=== PATIENT | male | born 1935 | race Caucasian/White ===

== ENCOUNTER → 2017-02-09 | Day surgery (SDC) | payer OTHER ==
[2017-01-20 10:59] VITALS: BMI 42.0
--- NOTE | 2017-01-20 11:59 | PAT Medication Instructions ---
Service Date January 20, 2017. Current Home Medication List Acetaminophen (Tylenol), 1,000 MG PO BID Albuterol Inhaler (Ventolin Inhaler), 2 PUFFS INH Q4-6HRS PRN for PRN Allopurinol (Zyloprim), 100 MG PO BID Amiodarone Hcl (Cordarone), 200 MG PO QAM Amlodipine (Norvasc), 5 MG PO QAM Apple Cider Vinegar (Apple Cider Vinegar), 1,000 MG PO QPM Aspirin (Aspirin Ec), 81 MG PO QAM Cholecalciferol (Vitamin D3), 3,000 UNIT PO QAM Cinnamon (Cinnamon), 1,000 MG PO HS Cyanocobalamin (Vitamin B-12), 3,000 MCG SL WK Esomeprazole Magnesium (Nexium), 40 MG PO QAM Fluticasone Propionate (Nasal) (Flonase Allergy Relief), 2 SPRAYS BAKARI QAM Furosemide (Lasix), 20 MG PO QAM Gabapentin (Neurontin), 100 MG PO QAM Gabapentin (Neurontin), 200 MG PO HS Glimepiride (Glimepiride), 1 MG PO BID Iron-Vitamin C (Iron 100/C), 2 TAB PO QAM Isosorbide Mononitrate Ext Rel (Imdur Ext Rel), 60 MG PO QAM Krill Oil (Krill Oil), 1,000 MG PO QAM Magnesium Oxide (Mag-Ox), 800 MG PO QAM Magnesium Oxide (Mag-Ox), 400 MG PO QPM Metaxalone (Skelaxin), 800 MG PO BID Metoprolol Succinate (Toprol Xl), 50 MG PO BID Multivitamin (Multivitamin), 1 TAB PO QAM Mupirocin (Bactroban 2% Oint), 1 APPLN EXT DAILY Nitroglycerin (Nitrostat), 0.4 MG UT PRN Probiotic Product (Probiotic Acidophilus), 1 CAP PO QAM Saline (Saline Nasal Mobile Infant), 1-2 SPRY BAKARI BID Sitagliptin (Januvia), 25 MG PO QAM Tramadol (Ultram), 50 MG PO Q6H PRN for RN Triamcinolone Acet (Nasacort-Aq Nasal Inh), 2 SPRAYS BAKARI QAM Valsartan (Diovan), 160 MG PO QAM Vitamin E (Alph-E), 400 UNITS PO QAM Warfarin Sodium (Warfarin Sodium), 5 MG PO 6XWK [Fiber Cap], 1 TAB PO BID Medication Instructions For Your Scheduled Surgery - Check with surgeon/coumadin clinic/surgeon for instructions: Warfarin Sodium (Warfarin Sodium), 5 MG PO 6XWK Aspirin (Aspirin Ec), 81 MG PO QAM - Hold the following medications 2 weeks prior to surgery: Vitamin E (Alph-E), 400 UNITS PO QAM Krill Oil (Krill Oil), 1,000 MG PO QAM Cinnamon (Cinnamon), 1,000 MG PO HS Apple Cider Vinegar (Apple Cider Vinegar), 1,000 MG PO QPM - Hold the following medications 24 hours prior to surgery: Mupirocin (Bactroban 2% Oint), 1 APPLN EXT DAILY - Hold the following medications the morning of surgery: [Fiber Cap], 1 TAB PO BID Valsartan (Diovan), 160 MG PO QAM Sitagliptin (Januvia), 25 MG PO QAM Probiotic Product (Probiotic Acidophilus), 1 CAP PO QAM Multivitamin (Multivitamin), 1 TAB PO QAM Metaxalone (Skelaxin), 800 MG PO BID Magnesium Oxide (Mag-Ox), 800 MG PO QAM Iron-Vitamin C (Iron 100/C), 2 TAB PO QAM Glimepiride (Glimepiride), 1 MG PO BID Furosemide (Lasix), 20 MG PO QAM Cyanocobalamin (Vitamin B-12), 3,000 MCG SL WK Cholecalciferol (Vitamin D3), 3,000 UNIT PO QAM - Take the following medications the morning of surgery with a sip of water: Triamcinolone Acet (Nasacort-Aq Nasal Inh), 2 SPRAYS BAKARI QAM Saline (Saline Nasal Mobile Infant), 1-2 SPRY BAKARI BID Nitroglycerin (Nitrostat), 0.4 MG UT PRN Metoprolol Succinate (Toprol Xl), 50 MG PO BID Isosorbide Mononitrate Ext Rel (Imdur Ext Rel), 60 MG PO QAM Gabapentin (Neurontin), 100 MG PO QAM Fluticasone Propionate (Nasal) (Flonase Allergy Relief), 2 SPRAYS BAKARI QAM Esomeprazole Magnesium (Nexium), 40 MG PO QAM Amlodipine (Norvasc), 5 MG PO QAM Amiodarone Hcl (Cordarone), 200 MG PO QAM Allopurinol (Zyloprim), 100 MG PO BID Acetaminophen (Tylenol), 1,000 MG PO BID Albuterol Inhaler (Ventolin Inhaler), 2 PUFFS INH Q4-6HRS PRN for PRN Tramadol (Ultram), 50 MG PO Q6H PRN for RN (okay to take up to 4 hours prior to surgery if needed) - Take the following medications as scheduled the night before surgery: [Fiber Cap], 1 TAB PO BID Saline (Saline Nasal Mobile ), 1-2 SPRY BAKARI BID Nitroglycerin (Nitrostat), 0.4 MG UT PRN Metoprolol Succinate (Toprol Xl), 50 MG PO BID Metaxalone (Skelaxin), 800 MG PO BID Magnesium Oxide (Mag-Ox), 400 MG PO QPM Glimepiride (Glimepiride), 1 MG PO BID Gabapentin (Neurontin), 200 MG PO HS Allopurinol (Zyloprim), 100 MG PO BID Acetaminophen (Tylenol), 1,000 MG PO BID Albuterol Inhaler (Ventolin Inhaler), 2 PUFFS INH Q4-6HRS PRN for PRN Tramadol (Ultram), 50 MG PO Q6H PRN for RN If you have any questions please call us at [phone] or [phone] or [phone]
--- NOTE | 2017-01-20 12:20 | DIAGNOSTIC IMAGING REPORT ---
CHEST PREADMISSION(PA/LAT) CLINICAL HISTORY: Preoperative chest COMPARISON STUDY: 06/24/2014 FINDINGS: The heart is at the upper limits of normal in size. A valvular prosthesis is visualized. There is mild basilar interstitial thickening. There is no failure. There is no lobar consolidation. There are no pleural effusions..[ IMPRESSION: Stable chronic interstitial thickening. No acute findings. Electronically signed by: Cristi Benz M.D. 01/20/2017 12:18 PM Dictated Date/Time: 01/20/2017 12:17 PM
[2017-01-20 12:49] LABS: BASO % 0.1 %; BASO ABS # 0.01 K/uL (0-0.2); COMPLETE YES; EOS % 0.2 %; LYMPH % 18.1 %; LYMPH ABS # 1.76 K/uL (1.2-3.4); MEAN CELL VOLUME 91.1 fL (80-100); MEAN CORPUSCULAR HEMOGLOBIN 30.1 pg (25-34); MEAN CORPUSCULAR HGB CONC 33.1 g/dl (32-36); MEAN PLATELET VOLUME 11.3 fL (7.4-10.4); MONO % 10.8 %; NEUT % 68.8 %; PLATELET COUNT 106 K/uL (130-400); RED BLOOD COUNT 3.95 M/uL (4.7-6.1)
[2017-01-20 13:04] LABS: INR 2.1 (0.9-1.1); PARTIAL THROMBOPLASTIN RATIO 1.5; PROTHROMBIN TIME (PATIENT) 22.9 SECONDS (9.0-12.0)
[2017-01-20 13:09] LABS: URINE APPEARANCE CLEAR (CLEAR); URINE BILIRUBIN NEG (NEG); URINE COLOR YELLOW; URINE NITRITE NEG (NEG); URINE PH 7.5 (4.5-7.5); UROBILINOGEN NEG (NEG); ZZUR CULT IF INDIC CLEAN CATCH NO
[2017-01-20 13:18] LABS: MANUAL MICROSCOPIC REQUIRED? NO; REVIEW REQ? NO; SULFASALICYLIC ACID POS (NEG)
[2017-01-20 13:24] LABS: BUN/CREATININE RATIO 14.9 (10-20); CALCIUM 8.9 mg/dl (8.5-10.1); CREATININE 2.4 mg/dl (0.60-1.40); POTASSIUM 4.4 mmol/L (3.5-5.1)
--- NOTE | 2017-02-08 19:35 | HISTORY & PHYSICAL EXAMINATION ---
DATE OF ADMISSION: 02/09/2017 CHIEF COMPLAINT: Chronic right shoulder pain. HISTORY OF PRESENT ILLNESS: This is a 81-year-old male patient of Dr. Reid'bertram complaining of chronic right shoulder pain, longstanding, now progressively getting worse. The patient had an MRI to diagnose severe AC arthritis and edema with biceps tendinopathy. He has failed conservative treatment and wishes to proceed with a right shoulder subacromial decompression, distal clavicle excision, and a possible biceps tenotomy. PAST MEDICAL HISTORY: Coronary artery disease status post an NH with a history of angina, hypertension, hypercholesterolemia, irregular heartbeat, asthma, pulmonary embolism, COPD, sleep apnea with the use of CPAP, carpal tunnel syndrome, diabetes mellitus, anemia, history of blood clots, osteoarthritis, spine problems, neck problems, sciatica, acid reflux, hiatal hernia, obesity, and kidney failure. SOCIAL HISTORY: The patient was a lifelong smoker, quit in 1986. He is an occasional drinker. PAST SURGICAL HISTORY: Will be provided on admission. FAMILY HISTORY: Noncontributory. REVIEW OF SYSTEMS: The patient complains of chronic right shoulder pain. Otherwise, denies any shortness of breath, chest pain, nausea, vomiting or any other joint complaints. DISCHARGE MEDICATIONS: Include: 1. Tylenol 1000 mg b.i.d. 2. Albuterol inhaler 2 puffs q. 4-6 hours p.r.n. 3. Allopurinol 100 mg b.i.d. 4. Amiodarone 200 mg q.a.m. 5. Amlodipine 5 mg q.a.m. 6. Apple cider vinegar 1000 mg q.p.m. 7. Aspirin 81 mg q.a.m. 8. Cholecalciferol 30,000 units q.a.m. 9. Cinnamon 1000 mg at bedtime. 10. Vitamin B12 3000 mcg daily. 11. Nexium 40 mg daily. 12. Flonase 2 sprays in each nostril q.a.m. 13. Lasix 20 mg daily. 14. Neurontin 100 mg daily q.a.m. and then Neurontin again 200 mg at bedtime. 15. Glimepiride 1 mg b.i.d. 16. Iron with vitamin C 2 tablets q.a.m. 17. Imdur extended release 60 mg q.a.m. 18. Krill oil 1000 mg q.a.m. 19. Magnesium oxide 800 mg q.a.m., magnesium oxide 400 mg q.p.m. 20. Skelaxin 800 mg b.i.d. 21. Toprol 50 mg b.i.d. 22. A multivitamin daily. 23. Bactroban 2% ointment apply externally to affected area daily. 24. Nitrostat 0.4 mg as needed. 25. Probiotic daily. 26. Saline b.i.d. 27. Januvia 25 mg q.a.m. 28. Ultram 50 mg as needed. 29. Nasacort 2 sprays in each nostril in the morning. 30. Diovan 160 mg q.a.m. 31. Vitamin E 400 units q.a.m. 32. Warfarin or Coumadin 5 mg 6 days per week, 1 tablet. 33. Fiber 1 tablet b.i.d. ALLERGIES: INCLUDE DANDER AND POLLEN. PHYSICAL EXAMINATION: GENERAL: Well-developed, well-nourished 81-year-old male in no acute distress. He is alert and oriented x3 and pleasant. HEENT: Normocephalic, atraumatic. Extraocular motions are intact. Pupils are equal and reactive to light. HEART: Regular rate and rhythm, no murmurs appreciated. LUNGS: Clear. ABDOMEN: Soft, nontender, bowel sounds present. EXTREMITIES: Right shoulder reveals positive AC joint tenderness, positive impingement maneuvering, positive pain with strength testing. He has positive Speed's test and Ector testing. NEUROLOGIC: Neurovascularly he is intact in his right upper extremity. DIAGNOSES: Right shoulder acromioclavicular arthritis, biceps tendinopathy and impingement. He also has a history of coronary artery disease status post an myocardial infarction, hypertension, hypercholesterolemia, irregular heartbeat, history of angina, asthma, pulmonary embolism, chronic obstructive pulmonary disease, sleep apnea with the use of CPAP, carpal tunnel syndrome, diabetes mellitus, anemia, again deep vein thrombosis, osteoarthritis, spine problems, neck problems, sciatica, acid reflux, hiatal hernia, obesity, kidney failure. PLAN: The patient was advised of his diagnosis. Indications, risks, benefits, and postop course have all been reviewed. The patient wishes to proceed with a right shoulder subacromial decompression, arthroscopic distal clavicle excision, and possible biceps tenotomy. Necessary consent forms, preoperative testing and clearances will be obtained. [place]
[~2017-02-09] VITALS: Ht 180.3 cm; Wt 125.5 kg
[~2017-02-09] MED LIST: ACET-1256 PO; ALBUAER19 INH; ALLO100T57 PO; AMIO200T4 PO; AMLO-110 PO; APPLTAB PO; ASPI81TA28 PO; BCTROWC EXT; BUPIVACAINE 0.25% 30 ML VIAL INFIL SCH; BUPIVACAINE 0.5 % 5 MG/1 ML PF 10ML VIAL ONE; BUPIVACAINE/EPINEPHRINE 0.25% 1:200,000 30 ML VIAL ONE; CEFAZOLIN 3000 MG/65 ML D5W IV SCH; CHOL1TAB12 PO; CINN1CAP2 PO; CLONIDINE HCL 100 MCG/ML SYRINGE ONE; CYAN1SUB12 SL; DVN/160 PO; FENTANYL CITRATE INJ 50 MCG/1 ML 2 ML VIAL ONE; FIBER CAP PO; FLUT0.15 NAE; FURO-85 PO; GABA-112 PO; GLIM1TAB2 PO; IRON5TAB PO; ISOS60TA25 PO; KRIL1000 PO; MAGN400T6 PO; MEPIVACAINE HCL 1.5% 30 ML VIAL ONE; META1TAB22 PO; METHYLPREDNISOLONE ACETATE 80 MG/ML VIAL IA ONE; METO-452 PO; MIDAZOLAM HCL 1 MG/ML 2ML VIAL ONE; MULT-506 PO; NTRGSL/4 UT; NXM/40 PO; PROB1CAP6 PO; SALI1SPR15 NAE; SITA25TA PO; SODIUM CHLORIDE 0.9% 1000ML 1,000 ML IV SCH; TRAM-10 PO; TRIA3AER NAE; VITA400C28 PO; WARF-246 PO
[2017-02-09 05:53] VITALS: BP 144/92; PULSE 60; TEMP 37; O2SAT 93; Ht 180.3 cm; Wt 125.5 kg
[2017-02-09 06:00] LABS: PARTIAL THROMBOPLASTIN RATIO 1.2; PROTHROMBIN TIME (PATIENT) 10.7 SECONDS (9.0-12.0)
[2017-02-09 06:13] LABS: BUN/CREATININE RATIO 12.4 (10-20); CALCIUM 8.7 mg/dl (8.5-10.1); POTASSIUM 4.5 mmol/L (3.5-5.1)
--- NOTE | 2017-02-09 07:15 | Anesthesiology Progress Note ---
Anesthesia Progress Note Date of Service February 09, 2017. Progress Notes This is a 81 y/o w male presenting for right shoulder surgery.PMHx is extensive and sig. for:CHF,s/p TAVR for ,CAD,s/p stent,COPD,Asthma,anemia,morbid obesdity,carotid artery disease,,s/p NE,sleep apnea,NIDDM,Diabetic PN and CRI/ CKD.Pt is >75 y/o imposing additional increased risk.Pt had a CR on 01/20/17 of 2.4.It was repeated this am and is 3.0.This imposes increased risk and is an independent risk factor for increased perioperative morbidity and mortality. I have discussed this with DR Reid and pt and family.Case is cancelled. This is an elective case.Pt is advised to visit his application integration specialist.
--- NOTE | 2017-03-28 13:36 | [facility] Operative Report ---
Operative Report Operative Date Mar 28, 2017. Pre-Operative Diagnosis right shoulder impingement biceps tendinopahty and acj arthritis and obesity Post-Operative Diagnosis same ,renal insufficiency Procedure(s) Performed subacromial injection of depomedrol right shoulder Surgeon neisha Estimated Blood Loss none Findings increased bun and creatinine concerning for new onset renal insufficiency Complication(s) None Disposition home Indications chronic pain failed conservative management Description of Procedure right shoulder sterily prepped with betadine and shoulder injected with 1cc depomedrol and 3 cc marcaine into subacromial space ,arthroscopic surgery cancelled for today I attest to the content of the Intraoperative Record and any orders documented therein. Any exceptions are noted below.
== END | disposition home or self-care (01) ==
LOC: C.ACU 05:23
PROVIDERS: ATTEND Orthopaedic Surgery Sports Medicine
DX: M75.42 Impingement syndrome of left shoulder (principal); M77.9 Enthesopathy, unspecified; I25.10 Atherosclerotic heart disease of native coronary artery without angina pectoris; I10 Essential (primary) hypertension; E78.00 Pure hypercholesterolemia, unspecified; N18.9 Chronic kidney disease, unspecified; J44.9 Chronic obstructive pulmonary disease, unspecified; K21.9 Gastro-esophageal reflux disease without esophagitis; E11.9 Type 2 diabetes mellitus without complications; G47.30 Sleep apnea, unspecified; Z87.891 Personal history of nicotine dependence; E66.9 Obesity, unspecified; I25.2 Old myocardial infarction; Z79.01 Long term (current) use of anticoagulants; Z79.82 Long term (current) use of aspirin; Z86.711 Personal history of pulmonary embolism

== ENCOUNTER 2018-05-08 13:51 | Emergency (ER) | payer OTHER ==
[~2018-05-08] VITALS: Ht 177.8 cm; Wt 120.1 kg
[~2018-05-08 13:51] MED LIST changes: -AMLO-110 PO; +AMLO5TAB3 PO; -BUPIVACAINE 0.25% 30 ML VIAL INFIL SCH; -BUPIVACAINE 0.5 % 5 MG/1 ML PF 10ML VIAL ONE; -BUPIVACAINE/EPINEPHRINE 0.25% 1:200,000 30 ML VIAL ONE; -CEFAZOLIN 3000 MG/65 ML D5W IV SCH; -CLONIDINE HCL 100 MCG/ML SYRINGE ONE; -FENTANYL CITRATE INJ 50 MCG/1 ML 2 ML VIAL ONE; -MEPIVACAINE HCL 1.5% 30 ML VIAL ONE; -METHYLPREDNISOLONE ACETATE 80 MG/ML VIAL IA ONE; -MIDAZOLAM HCL 1 MG/ML 2ML VIAL ONE; -SODIUM CHLORIDE 0.9% 1000ML 1,000 ML IV SCH
[2018-05-08 14:01] VITALS: TEMP 36.9; Ht 177.8 cm; Wt 120.1 kg
--- NOTE | 2018-05-08 14:20 | EMERGENCY ROOM VISIT NOTE ---
History Report prepared by Henrry: Joseph Merrill Under the Supervision of: Dr. Oscar Downing M.D. First contact with patient: 13:59 Chief Complaint: FALL History of Present Illness The patient is a 82 year old male who presents to the Emergency Room with complaints of intermittent bleeding from his right ear occurring for the past two nights. The patient reports that he fell last Tuesday, stating that he fell backwards when attempting to hop picker something from the ground. He notes that he hit his head, and reports a couple of "bleeding spots" on his right arm. He states that he was sent to the ENT doctor today after an appointment for a tube that came out of his left ear. The patient notes current congestion, neck pain, left eye pain, and constant pain posterior to the ear, improved with Tylenol. He denies chest, abdominal, or pelvic pain. He reports that he is on Coumadin. He notes that he has walked using a walker since he fell. Source of History: patient Onset: past two nights Position: ear (right) Quality: other (bleeding) Timing: intermittent Modifying Factors (Relieving): tylenol Associated Symptoms: + neck pain, No chest pain, No abdominal pain Note: eye pain, congestion Review of Systems See HPI for pertinent positives and negatives. A total of ten systems were reviewed and were otherwise negative. Past Medical & Surgical Medical Problems: (1) COPD (chronic obstructive pulmonary disease) (2) HTN (hypertension) (3) Hypercholesterolemia Family History Patient reports no known family medical history. Social History Smoking Status: Former Smoker Alcohol Use: none Drug Use: none Marital Status: Housing Status: lives with significant other Occupation Status: retired Current/Historical Medications Scheduled Apple Cider Vinegar (Apple Cider Vinegar), 1,000 MG PO QPM Aspirin (Aspirin Ec), 81 MG PO QAM Carvedilol (Carvedilol), 12.5 MG PO BID Cinnamon (Cinnamon), 1,000 MG PO HS Cyanocobalamin (Vitamin B-12), 3,000 MCG SL WK Esomeprazole Magnesium (Esomeprazole Magnesium), 40 MG PO DAILY Fluticasone Propionate (Nasal) (Flonase Allergy Relief), 2 SPRAYS BAKARI QAM Insulin Glargine (Basaglar Kwikpen), 10 UNITS SC HS Isosorbide Mononitrate Ext Rel (Imdur Ext Rel), 60 MG PO QAM Krill Oil (Krill Oil), 1,000 MG PO QAM Levothyroxine Sodium (Levothyroxine Sodium), 75 MCG PO DAILY Loratadine (Claritin), 10 MG PO DAILY Multivitamin (Multivitamin), 1 TAB PO QAM Nitroglycerin (Nitrostat), 0.4 MG UT PRN Potassium Chloride (Potassium Chloride ER), 20 MEQ PO BID Potassium Ext Rel (Klor-Con), 40 MEQ PO 3XWK Sertraline HCl (Sertraline HCl), 50 MG PO DAILY Sertraline HCl (Sertraline HCl), 25 MG PO DAILY Torsemide (Torsemide), 40 MG PO DAILY Vitamin E (Alph-E), 400 UNITS PO QAM Warfarin Sod (Jantoven), 10 MG PO 2XWK Warfarin Sod (Jantoven), 5 MG PO 5XWK Allergies Coded Allergies: Cat Dander (Verified Allergy, Unknown, STUFFY NOSE, 05/08/18) NO KNOWN DRUG ALLERGIES (Verified Allergy, Unknown, NONE, 05/08/18) POLLEN (Verified Allergy, Unknown, STUFFY NOSE, 05/08/18) Physical Exam Vital Signs Date Time Temp Pulse Resp B/P (MAP) Pulse Ox O2 Delivery O2 Flow Rate FiO2 05/08/18 16:53 78 189/94 97 05/08/18 15:26 49 14 181/85 96 Room Air 05/08/18 14:29 49 05/08/18 14:26 97 Room Air 05/08/18 14:01 36.9 50 193/90 96 Room Air Physical Exam GENERAL: Awake, alert, well-appearing, NAD. Wearing glasses with hearing aids in place. HENT: Right posterior parietal pain. No ecchymosis or evidence of skull fracture. TMs clear bilaterally with a small abrasion at the base of the external aduitory canal. No hemotympanum. Tympanostomy tube in left TM w/ clear effusion w/o redness or bulging. EYES: Normal conjunctiva. Sclera non-icteric. PERRL. No anisocoria. NECK: Supple. No nuchal rigidity. FROM. No midline tenderness of the C-spine. Mild right-sided C-spine tenderness. RESPIRATORY: CTAB, no rhonchi, wheezing, crackles CARDIAC: RRR, no MRG ABDOMEN: Soft, NTND, BS+ MSK: No chest wall TTP, no LE edema. No chest, back, bilateral lower and upper extremity, abdomen, or pelvic pain. NEURO: GCS 15, CN 2-12 intact, moves all 4s on command SKIN: No rash or jaundice noted. Ecchymosis of the right upper extremity. Medical Decision & Procedures ER Provider Diagnostic Interpretation: Radiology results as stated below per my review and radiologist interpretation: CT OF THE CERVICAL SPINE CLINICAL HISTORY: Neck pain status post trauma COMPARISON STUDY: No previous studies for comparison. CT DOSE: 1136.76 mGy.cm TECHNIQUE: CT scan of the cervical spine was performed from the skull base to the thoracic inlet. Images are reviewed in the axial, sagittal, and coronal planes. IV contrast was not administered for this examination. A dose lowering technique was utilized adhering to the principles of ALARA. FINDINGS: There is a left mastoid effusion. There is a right carotid stent present. There is no pneumothorax. The prevertebral soft tissues are normal. No fractures or subluxations are visualized. There are multilevel degenerative changes IMPRESSION: 1. No evidence of acute fracture or traumatic subluxation 2. Moderate multilevel degenerative change 3. Left mastoid effusion Electronically signed by: Cristi Benz M.D. 05/08/2018 3:50 PM Dictated Date/Time: 05/08/2018 3:[address] HEAD WITHOUT CONTRAST (CT) CLINICAL HISTORY: Head pain status post trauma COMPARISON STUDY: No previous studies for comparison. TECHNIQUE: Axial CT of the brain is performed from the vertex to the skull base. IV contrast was not administered for this examination. A dose lowering technique was utilized adhering to the principles of ALARA. CT DOSE: FINDINGS: No intra or extra-axial mass lesions are visualized. There is no CT evidence of acute cortical infarction. There is no evidence of midline shift. There is no acute hemorrhage. No calvarial fractures are visualized. There are patchy white matter hypodensities likely on a small vessel basis. There is no evidence of pathologic ventricular dilatation. There is a left mastoid effusion. There is sphenoid sinus mucosal thickening. There is frontal sinus mucosal thickening. IMPRESSION: 1. Extensive left mastoid effusion. 2. Otherwise, no acute intracranial findings. Electronically signed by: Cristi Benz M.D. 05/08/2018 3:54 PM Dictated Date/Time: 05/08/2018 3:52 PM Laboratory Results 05/08/18 14:21 Red Blood Count 3.94, Mean Corpuscular Volume 84.3, Mean Corpuscular Hemoglobin 27.7, Mean Corpuscular Hemoglobin Concent 32.8, Mean Platelet Volume 10.6, Neutrophils (%) (Auto) 61.4, Lymphocytes (%) (Auto) 17.1, Monocytes (%) (Auto) 19.3, Eosinophils (%) (Auto) 0.6, Basophils (%) (Auto) 0.1, Neutrophils # (Auto ) 6.45, Lymphocytes # (Auto) 1.79, Monocytes # (Auto) 2.02, Eosinophils # (Auto ) 0.06, Basophils # (Auto) 0.01 05/08/18 14:21 Test 05/08/18 14:21 White Blood Count 10.49 K/uL (4.8-10.8) Red Blood Count 3.94 M/uL (4.7-6.1) Hemoglobin 10.9 g/dL (14.0-18.0) Hematocrit 33.2 % (42-52) Mean Corpuscular Volume 84.3 fL (80-100) Mean Corpuscular Hemoglobin 27.7 pg (25-34) Mean Corpuscular Hemoglobin Concent 32.8 g/dl (32-36) Platelet Count 92 K/uL (130-400) Mean Platelet Volume 10.6 fL (7.4-10.4) Neutrophils (%) (Auto) 61.4 % Lymphocytes (%) (Auto) 17.1 % Monocytes (%) (Auto) 19.3 % Eosinophils (%) (Auto) 0.6 % Basophils (%) (Auto) 0.1 % Neutrophils # (Auto) 6.45 K/uL (1.4-6.5) Lymphocytes # (Auto) 1.79 K/uL (1.2-3.4) Monocytes # (Auto) 2.02 K/uL (0.11-0.59) Eosinophils # (Auto) 0.06 K/uL (0-0.5) Basophils # (Auto) 0.01 K/uL (0-0.2) RDW Standard Deviation 45.4 fL (36.4-46.3) RDW Coefficient of Variation 14.6 % (11.5-14.5) Immature Granulocyte % (Auto) 1.5 % Immature Granulocyte # (Auto) 0.16 K/uL (0.00-0.02) Hypogranular Neutrophils 1+ Platelet Estimate DECREASED Prothrombin Time 25.1 SECONDS (9.0-12.0) Prothromb Time International Ratio 2.4 (0.9-1.1) Activated Partial Thromboplast Time 44.1 SECONDS (21.0-31.0) Partial Thromboplastin Ratio 1.7 Anion Gap 8.0 mmol/L (3-11) Est Creatinine Clear Calc Drug Dose 27.7 ml/min Estimated GFR () 24.0 Estimated GFR (Non- 20.7 BUN/Creatinine Ratio 15.0 (10-20) Calcium Level 8.7 mg/dl (8.5-10.1) Total Bilirubin 0.3 mg/dl (0.2-1) Direct Bilirubin < 0.1 mg/dl (0-0.2) Aspartate Amino Transf (AST/SGOT) 16 U/L (15-37) Alanine Aminotransferase (ALT/SGPT) 18 U/L (12-78) Alkaline Phosphatase 110 U/L (45-117) Total Protein 7.4 gm/dl (6.4-8.2) Albumin 3.4 gm/dl (3.4-5.0) Laboratory results reviewed by wa ED Course 1401: The patient was evaluated in room C11B. A complete history and physical exam was performed. 1630: I reevaluated the patient. Discussed results and discharge instructions: He verbalized understanding and agreement. The patient is ready for discharge. Medical Decision Nursing notes reviewed. Ancillary studies and prior records reviewed. The patient is a 82 year old male who presents to the Emergency Room with complaints of intermittent bleeding from his right ear occurring for the past two nights. Differential diagnosis: Etiologies such as fracture, dislocation, intra-abdominal, pneumothorax, intrathoracic , intracranial, neurologic, as well as other traumatic pathologies were entertained. Patient was seen and evaluated the bedside. The patient reportedly did have a fall last Tuesday. Had bent over to pick something up and had fallen backwards. Patient did strike his head no LOC no tongue biting or seizure-like activity. Patient was seen in the ENT clinic today and was referred here for further evaluation and treatment. The patient did note that he was having some difficulty with some left-sided hearing. The patient also noted some blood from the right ear. The patient also concerned that he may have an element of sinusitis. On exam the patient is fairly well-appearing and the patient does have trace effusion to the left TM but there is no bulging and no erythema. I did inspect the right TM which is normal and the patient does have what appears to be some scant bleeding of the external auditory canal. No evidence of any hemotympanum. Patient did have blood work completed along with a CT brain CT C-spine. Patient does have CKD actually has improved creatinine clearance and creatinine from prior. Patient's INR is 2.4. Patient does have chronic anemia. The patient CT brain and C-spine negative acute with the exception of a left mastoid effusion. The patient has not had any purulent drainage. The patient does not have any evidence of mastoiditis. There is no evidence of an infected effusion noted on his exam. I do not believe he warrants antibiotic treatment at this time. The patient has normal white blood cell count and is afebrile. I did discuss with the patient but he is already taking Claritin as well as nasal cord and saline nasal sprays. I believe this is appropriate treatment he may continue to follow-up with ENT for any further concerns or treatment. Patient was told return if he does develop purulent drainage or fever or worsening headache or other symptoms. Patient was given strict follow-up, discharge, and return precautions. All questions were answered. Patient was deemed suitable for outpatient follow-up at this time. Patient agreed with the plan of care and was safely discharged home. Medication Reconcilliation Current Medication List: was personally reviewed by me Blood Pressure Screening Patient's blood pressure: Elevated blood pressure Blood pressure disposition: Referred to PCP Impression Primary Impression: Fall Additional Impressions: Anemia CKD (chronic kidney disease) Acute effusion of left ear Scribe Attestation The scribe's documentation has been prepared under my direction and personally reviewed by me in its entirety. I confirm that the note above accurately reflects all work, treatment, procedures, and medical decision making performed by me. Departure Information Dispostion Home / Self-Care Referrals Suzy Alexis D.O. (PCP) Forms HOME CARE DOCUMENTATION FORM, IMPORTANT VISIT INFORMATION Patient Instructions ED Mechanical Fall, ED Prevention Fall, Kidney Disease Chronic Nd, My [facility] Additional Instructions Please return to the emergency department if you have worsening or recurrent symptoms not amenable to at-home treatment. Please call for a follow-up appointment with her primary care physician. Please take your medications as prescribed. If you have other concerns and/or complaints please feel free to also call your primary care physician's office or return the ED for further evaluation, management, and treatment. Your creatinine clearance today was 20. Your INR was 2.4. Take your medications as prescribed. You have been examined and treated today on an emergency basis only. This is not a substitute for, or an effort to provide, complete comprehensive medical care. It is impossible to recognize and treat all injuries or illnesses in a single emergency department visit. It is therefore important that you follow up closely with [facility], your PCP, and/or your specialist(s). Call as soon as possible for an appointment. Thank you for your time and consideration. I look forward to speaking with you again soon. Please don't hesitate to call us if you have any questions. Problem Qualifiers Primary Impression: Fall Encounter type: initial encounter Qualified Codes: W19.XXXA - Unspecified fall, initial encounter Additional Impressions: Anemia Anemia type: unspecified type Qualified Codes: D64.9 - Anemia, unspecified CKD (chronic kidney disease) Chronic kidney disease stage: stage 4 (severe) Qualified Codes: N18.4 - Chronic kidney disease, stage 4 (severe)
[2018-05-08 14:26] VITALS: O2SAT 97
[2018-05-08 14:43] LABS: INR 2.4 (0.9-1.1); PTT PATIENT 44.1 SECONDS (21.0-31.0)
[2018-05-08] MEDS ORDERED: CRG125 PO (14:55)
[2018-05-08] MEDS ORDERED: SERT1TAB88 PO (14:55)
[2018-05-08] MEDS ORDERED: TORS20TA3 PO (14:55)
[2018-05-08] MEDS ORDERED: LEVO75TA5 PO (14:55)
[2018-05-08] MEDS ORDERED: WARF5TAB7 PO (14:55)
[2018-05-08] MEDS ORDERED: ZLF/50 PO (14:55)
[2018-05-08] MEDS ORDERED: POTA-65 PO (14:55)
[2018-05-08] MEDS ORDERED: CLR10 PO (14:55)
[2018-05-08] MEDS ORDERED: WARF10TA4 PO (14:55)
[2018-05-08] MEDS ORDERED: INSU100I23 SC (14:55)
[2018-05-08] MEDS ORDERED: POTA-639 PO (14:55)
[2018-05-08] MEDS ORDERED: ESOM1CAP34 PO (14:55)
[2018-05-08 14:58] LABS: ALBUMIN 3.4 gm/dl (3.4-5.0); ALKALINE PHOSPHATASE 110 U/L (45-117); ALT/SGPT 18 U/L (12-78); AST/SGOT 16 U/L (15-37); BLOOD UREA NITROGEN 41 mg/dl (7-18); CALCIUM 8.7 mg/dl (8.5-10.1); CARBON DIOXIDE 26 mmol/L (21-32); CREATININE 2.76 mg/dl (0.60-1.40); GLUCOSE 167 mg/dl (70-99); POTASSIUM 4.3 mmol/L (3.5-5.1); SODIUM 137 mmol/L (136-145); TOTAL PROTEIN 7.4 gm/dl (6.4-8.2)
[2018-05-08 15:11] LABS: BASO % 0.1 %; BASO ABS # 0.01 K/uL (0-0.2); EOS % 0.6 %; EOS ABS # 0.06 K/uL (0-0.5); HEMATOCRIT 33.2 % (42-52); HEMOGLOBIN 10.9 g/dL (14.0-18.0); IG# 0.16 K/uL (0.00-0.02); LYMPH % 17.1 %; LYMPH ABS # 1.79 K/uL (1.2-3.4); MEAN CELL VOLUME 84.3 fL (80-100); MEAN CORPUSCULAR HEMOGLOBIN 27.7 pg (25-34); MEAN CORPUSCULAR HGB CONC 32.8 g/dl (32-36); MEAN PLATELET VOLUME 10.6 fL (7.4-10.4); MONO % 19.3 %; MONO ABS # 2.02 K/uL (0.11-0.59); NEUT % 61.4 %; NEUT ABS # 6.45 K/uL (1.4-6.5); PLATELET COUNT 92 K/uL (130-400); RED CELL DISTRIBUTION WIDTH CV 14.6 % (11.5-14.5); RED CELL DISTRIBUTION WIDTH SD 45.4 fL (36.4-46.3); WHITE BLOOD COUNT 10.49 K/uL (4.8-10.8)
--- NOTE | 2018-05-08 15:52 | DIAGNOSTIC IMAGING REPORT ---
CT OF THE CERVICAL SPINE CLINICAL HISTORY: Neck pain status post trauma COMPARISON STUDY: No previous studies for comparison. CT DOSE: 1136.76 mGy.cm TECHNIQUE: CT scan of the cervical spine was performed from the skull base to the thoracic inlet. Images are reviewed in the axial, sagittal, and coronal planes. IV contrast was not administered for this examination. A dose lowering technique was utilized adhering to the principles of ALARA. FINDINGS: There is a left mastoid effusion. There is a right carotid stent present. There is no pneumothorax. The prevertebral soft tissues are normal. No fractures or subluxations are visualized. There are multilevel degenerative changes IMPRESSION: 1. No evidence of acute fracture or traumatic subluxation 2. Moderate multilevel degenerative change 3. Left mastoid effusion Electronically signed by: Cristi Benz M.D. 05/08/2018 3:50 PM Dictated Date/Time: 05/08/2018 3:48 PM
--- NOTE | 2018-05-08 15:55 | DIAGNOSTIC IMAGING REPORT ---
CT HEAD WITHOUT CONTRAST (CT) CLINICAL HISTORY: Head pain status post trauma COMPARISON STUDY: No previous studies for comparison. TECHNIQUE: Axial CT of the brain is performed from the vertex to the skull base. IV contrast was not administered for this examination. A dose lowering technique was utilized adhering to the principles of ALARA. CT DOSE: FINDINGS: No intra or extra-axial mass lesions are visualized. There is no CT evidence of acute cortical infarction. There is no evidence of midline shift. There is no acute hemorrhage. No calvarial fractures are visualized. There are patchy white matter hypodensities likely on a small vessel basis. There is no evidence of pathologic ventricular dilatation. There is a left mastoid effusion. There is sphenoid sinus mucosal thickening. There is frontal sinus mucosal thickening. IMPRESSION: 1. Extensive left mastoid effusion. 2. Otherwise, no acute intracranial findings. Electronically signed by: Cristi Benz M.D. 05/08/2018 3:54 PM Dictated Date/Time: 05/08/2018 3:52 PM
[2018-05-08 16:53] VITALS: BP 189/94; PULSE 78; O2SAT 97
== END 2018-05-08 16:53 | disposition home or self-care (01) ==
LOC: EDBD 13:51 → C.EDC 13:52
DX: H74.8X3 Other specified disorders of middle ear and mastoid, bilateral (principal); W19.XXXA Unspecified fall, initial encounter; D64.9 Anemia, unspecified; N18.4 Chronic kidney disease, stage 4 (severe); J44.9 Chronic obstructive pulmonary disease, unspecified; I10 Essential (primary) hypertension; E78.00 Pure hypercholesterolemia, unspecified; Z87.891 Personal history of nicotine dependence; Z79.4 Long term (current) use of insulin; Z79.01 Long term (current) use of anticoagulants; Z51.81 Encounter for therapeutic drug level monitoring